=== PATIENT | male | born 1970 | race Native Hawaiian/Other Pacific Islander ===

== ENCOUNTER 2017-08-07 14:14 | Emergency (ER) | payer BC, OTHER ==
[~2017-08-07] VITALS: Ht 185.4 cm; Wt 117.9 kg
== END 2017-08-07 16:34 | disposition home or self-care (01) ==
LOC: ED 14:14
DX: S39.012A Strain of muscle, fascia and tendon of lower back, initial encounter (principal); V89.2XXA Person injured in unspecified motor-vehicle accident, traffic, initial encounter
CPT/HCPCS: 99283; J1885